=== PATIENT | male | born 1955 | race Two or more races ===

== ENCOUNTER 2018-11-24 16:51 | Emergency (ER) | payer SELFPAY ==
[~2018-11-24] VITALS: Ht 154.9 cm; Wt 79.4 kg
[2018-11-24 18:45] VITALS: BP 142/92
[2018-11-24] MEDS ORDERED: cefTRIAXone SOD 1,000 MG VL IM ONE (19:00)
[2018-11-24] MEDS ORDERED: HYDROcodone-ACET 10/325MG TAB PO ONE (19:00)
[2018-11-24] MEDS ORDERED: TETANUS-DIPTH-ACEL PERTUSSIS 0.5ML SYRG IM ONE (19:00)
[2018-11-24] MEDS ORDERED: LIDOCAINE W/ EPINEPHRINE 2% INJ 20ML VIAL IJ ONE (19:00)
== END 2018-11-24 19:50 | disposition home or self-care (01) ==
LOC: ER 16:54
DX: S81.812A Laceration without foreign body, left lower leg, initial encounter (principal); W22.8XXA Striking against or struck by other objects, initial encounter; Y93.89 Activity, other specified; Y99.8 Other external cause status; Y92.89 Other specified places as the place of occurrence of the external cause
CPT/HCPCS: 12004; 90471; 90715; 99283; J0696

== ENCOUNTER 2025-07-31 12:27 | Inpatient (IN) | payer MEDICARE, MEDICAID ==
[~2025-07-31] VITALS: Ht 167.6 cm; Wt 77.4 kg
[2025-07-31] VITALS (10 sets, daily range): BP systolic 128–149; BP diastolic 78–92; PULSE 53–71; RESP 12–21; TEMP 98.3; O2SAT 97–100
--- NOTE | 2025-07-31 13:03 | ED.PDOC ---
History of Present Illness HPI Comments 70M presents to the ER w/ the c/c of CP. Pt reports on having subsided chest tightness which radiates to the left side of the chest and the left throat for the past 90 minutes. Pt notes on having bilateral forearm stiffness. Family Hx of Cancer. Denies any other symptoms at this time. Denies chills, fever, N/V/D, SOB. Denies any other associated symptom's, modifiers, or recent injuries or sick contact at this time. Chief Complaint: Chest Pain Time Seen by MD: 13:00 Primary Care Provider: DENIES Reviewed Notes: Nurses Notes, Medications, Allergies Allergies: Coded Allergies: NO KNOWN ALLERGIES (Unverified , 11/24/18) Information Source: Patient Mode of Arrival: Ambulatory Severity: Moderate Timing: Minutes Duration: Since onset, Minutes Prehospital treatment: None Past Medical History PAST MEDICAL HISTORY: Denies Surgical History: Denies all surgeries Family History Family History: Reviewed,noncontributory to illness, Unknown Social History Smoker: Non-Smoker Alcohol: Denies ETOH Use Drugs: Denies Drug Use Lives In: Home Constitutional: denies: chills, diaphoresis, fatigue, fever, malaise, sweats, weakness, others EENTM: denies: blurred vision, double vision, ear bleeding, ear discharge, ear drainage, ear pain, ear ringing, eye pain, eye redness, hearing loss, mouth pain, mouth swelling, nasal discharge, nose bleeding, nose congestion, nose pain, photophobia, tearing, throat pain, throat swelling, voice changes, others Respiratory: denies: cough, hemoptysis, orthopnea, SOB at rest, shortness of breath, SOB with excertion, stridor, wheezing, others Cardiovascular: reports: chest pain; denies: dizzy spells, diaphoresis, Dyspnea on exertion, edema, irregular heart beat, left arm pain, lightheadedness, palpitations, PND, syncope, others Gastrointestinal: denies: abdomen distended, abdominal pain, blood streaked bowels, constipated, diarrhea, dysphagia, difficulty swallowing, hematemesis, melena, nausea, poor appetite, poor fluid intake, rectal bleeding, rectal pain, vomiting, others Genitourinary: denies: burning, dysuria, flank pain, frequency, hematuria, incontinence, penile discharge, penile sore, pain, testicle pain, testicle swelling, urgency, others Neurological: denies: dizziness, fainting, headache, left sided numbness, left sided weakness, numbness, paresthesia, pre-existing deficit, right sided numbness, right sided weakness, seizure, speech problems, tingling, tremors, weakness, others Musculoskeletal: denies: back pain, gout, joint pain, joint swelling, muscle pain, muscle stiffness, neck pain, others Integumetry: denies: bruises, change in color, change in hair/nails, dryness, laceration, lesions, lumps, rash, wounds, others Allergic/Immunocompromised: denies: Difficulty Healing, Frequent Infections, Hives, Itching, others Hematologic/Lymphatic: denies: anemia, blood clots, easy bleeding, easy bruising, swollen glands, others Endocrine: denies: excessive hunger, excessive sweating, excessive thirst, excessive urination, flushing, intolerance to cold, intolerance to heat, unexpl ained weight gain, unexplained weight loss, others Psychiatric: denies: anxiety, bipolar disorder, depression, hopeless, panic disorder, schizophrenia, sleepless, suicidal, others All Other Systems: Reviewed and Negative Physical Exam General Appearance: Moderate Distress HEENT: Normal ENT Inspection, Pharynx Normal, TMs Normal Neck: Full Range of Motion, Non-Tender, Normal, Normal Inspection Respiratory: Chest Non-Tender, Lungs Clear, No Accessory Muscle Use, No Respiratory Distress, Normal Breath Sounds Cardiovascular: No Edema, No JVD, No Murmur, No Gallop, Normal Peripheral Pulses, Regular Rate/Rhythm Breast Exam: Deferred Gastrointestinal: No Organomegaly, Non Tender, No Pulsatile Mass, Normal Bowel Sounds, Soft Genitalia: Deferred Pelvic: Deferred Rectal: Deferred Extremities: No calf tenderness, Normal capillary refill, Normal inspection, Normal range of motion, Non-tender, No pedal edema Musculoskeletal : Apperance: Normal Neurologic: Alert, boat cleaner II-XII nml as Tested, No Motor Deficits, Normal Affect, Normal Mood, No Sensory Deficits Cerebellar Function: Normal Reflexes: Normal Skin: Dry, Normal Color, Warm Lymphatic: No Adenopathy Was a procedure done? Was a procedure done?: No EKG EKG : Pulse Rate (adult): 55 [place]: Normal Cardiac Rhythm: NSR Block: None Hypertrophy: None ST: Normal Comments left axis deviation, borderline ST depression Differential Dx Considerations may include: ACS, CT, non STEMI, generalized weakness, electrolyte imbalance X-Ray, Labs, Meds, VS Vital Signs Date Time Temp Pulse Resp B/P (MAP) Pulse Ox O2 Delivery O2 Flow Rate FiO2 07/31/25 15:05 120/91 07/31/25 15:00 97.0 92 13 120/91 (101) 97 97.0 07/31/25 13:35 59 07/31/25 13:11 97.0 57 17 149/103 (118) 100 97.0 07/31/25 13:08 55 07/31/25 13:05 55 17 100 Room Air* 0 21 07/31/25 12:29 55 07/31/25 12:27 97.5 57 24 163/107 100 97.5 Lab Test 07/31/25 13:53 07/31/25 13:08 Range/Units Troponin I High Sensitivity 681 *H 543 *H </=54 ng/L White Blood Count 11.0 H 4.4-10.8 10^3/uL Red Blood Count 5.68 4.5-5.90 10^6/uL Hemoglobin 16.8 13.5-17.5 g/dL Hematocrit 49.8 41.0-53.0 % Mean Corpuscular Volume 87.7 80.0-100.0 fL Mean Corpuscular Hemoglobin 29.6 28.0-32.0 pg Mean Corpuscular Hemoglobin Concent 33.7 32.0-36.0 g/dL Red Cell Distribution Width 14.2 11.8-14.3 % Platelet Count 294 140-450 10^3/uL Mean Platelet Volume 8.0 6.9-10.8 fL Neutrophils (%) (Auto) 73.5 37.0-80.0 % Lymphocytes (%) (Auto) 17.7 10.0-50.0 % Monocytes (%) (Auto) 7.0 0.0-12.0 % Eosinophils (%) (Auto) 0.6 0.0-7.0 % Basophils (%) (Auto) 1.2 0.0-2.0 % Neutrophils # (Auto) 8.1 1.6-8.6 10 ^3/uL Lymphocytes # (Auto) 2.0 0.4-5.4 10 ^3/uL Monocytes # (Auto) 0.8 0-1.3 10 ^3/uL Eosinophils # (Auto) 0.1 0-0.8 10 ^3/uL Basophils # (Auto) 0.1 0-0.2 10 ^3/uL Nucleated Red Blood Cells 0.2 % Prothrombin Time 10.4 9.3-11.8 sec Prothrombin Time INR 0.98 0.9-1.15 Activated Partial Thromboplast Time 24.6 24.5-34.5 SEC Sodium Level 144 136-145 mmol/L Potassium Level 4.0 3.5-5.1 mmol/L Chloride Level 109 H 98-107 mmol/L Carbon Dioxide Level 19 L 20-31 mmol/L Anion Gap 16 H 5-15 Blood Urea Nitrogen 18 9-23 mg/dL Creatinine 1.21 0.700-1.30 mg/dL Glomerular Filtration Rate Calc 64 >90 mL/min BUN/Creatinine Ratio 14.9 10.0-20.0 Serum Glucose 135 H 74-106 mg/dL Calcium Level 9.8 8.7-10.4 mg/dL Magnesium Level 2.1 1.6-2.6 mg/dL Total Bilirubin 0.9 0.2-1.0 mg/dL Aspartate Amino Transferase (AST) 48 H 13-40 U/L Alanine Aminotransferase (ALT) 50 H 7-40 U/L Alkaline Phosphatase 94 46-116 U/L Total Protein 8.0 5.7-8.2 g/dL Albumin 4.8 3.2-4.8 g/dL Triglycerides Level 64 < 150 mg/dL Cholesterol Level 155 < 200 mg/dL LDL Cholesterol 70 < 100 mg/dL HDL Cholesterol 70 H 40-59 mg/dL Current Medications Medications (Trade) Dose Ordered Sig/Liz Route Start Time Stop Time Status Last Admin Aspirin 324 mg ONCE ONCE PO 07/31/25 13:15 07/31/25 13:16 DC 07/31/25 13:54 Heparin Sodium (Porcine) 2,500 units ONCE ONCE IV 07/31/25 13:15 07/31/25 13:16 DC 07/31/25 13:54 Heparin Sodium/ Dextrose 250 ml @ 9 mls/hr Q24H IV 07/31/25 14:15 07/31/25 14:42 Nitroglycerin 250 ml @ 1.5 mls/hr Q24H IV 07/31/25 14:45 07/31/25 15:05 We initially evaluated the patient and after seeing the EKG we did call a STEMI. We sent the EKG to the research editor and at that time the research editor stated that the patient would most likely be taken to laboratory engineer. When we explained to the patient what we are going to be doing, the patient then stated that he did not want to be taken to the laboratory engineer. The STEMI was then canceled. The patient has received aspirin 324 mg p.o.. Upon talking with the patient he then stated that he would like to leave against medical advice. We then initially were able to talk the patient into staying. The patient's pain was somewhat persistent but he stated that he did not want any pain medication. We were able to start nitroglycerin on this patient as well as a heparin bolus and heparin drip. A repeat EKG then showed worsening ST changes consistent with possible STEMI We then called the research editor again and the patient has a agreed to go to the laboratory engineer for angiogram. The patient's CBC shows a slightly elevated white blood cell count of 11 The rest of the CBC is within normal limits. The chemistry panel shows a CO2 level of 19 The anion gap is elevated at 16 The 1st troponin level came back at 543 The 2nd one came back at 681. We feel that this patient may be having a STEMI but the patient will be taken to laboratory engineer at this time. Medical decision making was made to admit the patient and has a Cardiology consult as well as take the patient for an angiogram and possible stent secondary to the persistent chest pain and elevated troponin levels. Critical Care involved consultation with the research editor as well as bedside evaluation and evaluation of labs and images. Images Reviewed?: Images reviewed and evaluated by me Time of 1ST Reevaluation: 13:30 Reevaluation 1ST: Unchanged Patient Education/Counseling: Diagnosis, Treatment, Prognosis Family Education/Counseling: No Family Present SEPSIS Sepsis Screen Date sepsis recognized/suspect: Jul 31, 2025 Time Sepsis recognized/suspect: 1241 Recent Procedure: No On Antibiotic Therapy: No Respiratory Rate >20: Yes Heart Rate >90: No Temp<36 C (96.8 F) or >38.3 C: No SBP <90 or MAP <65 mmHG: No New Acute Mental Status Change: No Is the patient on CPAP, BIPAP,: No Physician Orders Electrocardigram (07/31/25 12:46) Electrocardigram (07/31/25 13:46) Electrocardigram (07/31/25 15:46) Chest Portable (07/31/25 13:01) Laboratory Engineer (07/31/25 13:01) Blood Pressure (07/31/25 13:01) Pulse Oximetry (07/31/25 13:01) Heplock Iv (07/31/25 13:01) Heplock Iv (07/31/25 13:01) Oxygen Per Hour (07/31/25 13:01) Echo 2d Mode Cardiac Dop (07/31/25 13:01) Troponin-I Hs (07/31/25 16:01) Cl Left Heart Cath (07/31/25 13:12) Clopidogrel Bisulfate (Plavix) (08/02/25 10:00) Complete Blood Count (08/01/25 04:00) PTPTT (07/31/25 20:00) Heparin Per Pharmacy Protocol (07/31/25 13:56) Heparin Drip/D5w 100units/Ml (07/31/25 14:15) Nitroglycerin 50mg/250ml (Tridil) (07/31/25 14:45) Atorvastatin (Lipitor) (07/31/25 22:00) Oxygen By Nasal Cannula (07/31/25 14:33) Chest Portable (07/31/25 14:34) Laboratory Engineer (07/31/25 14:34) Blood Pressure (07/31/25 14:34) Pulse Oximetry (07/31/25 14:34) Sodium Chloride Lock (Saline Lock Ns) (07/31/25 22:00) Oxygen Per Hour (07/31/25 14:34) Cardiac Rehabilitation - Outpa (07/31/25 ) Npo Except For Medications (08/01/25 00:01) Obtain Consent For: (07/31/25 14:34) D/C Tlc (07/31/25 14:34) Shave Both Groins (07/31/25 14:34) Provide Education Materials (07/31/25 14:34) Cl Left Heart Cath (07/31/25 14:34) Comprehensive Metabolic Panel (08/02/25 04:00) Obtain Consent For Anesthesia (07/31/25 14:34) Thyroid Stimulating Hormone (07/31/25 16:37) Hemoglobin A1c (07/31/25 16:37) B-Type Natriuretic Peptide (07/31/25 16:38) Vital Signs Date Time Temp Pulse Resp B/P (MAP) Pulse Ox O2 Delivery O2 Flow Rate FiO2 07/31/25 15:05 120/91 07/31/25 15:00 97.0 92 13 120/91 (101) 97 97.0 07/31/25 13:35 59 07/31/25 13:11 97.0 57 17 149/103 (118) 100 97.0 07/31/25 13:08 55 07/31/25 13:05 55 17 100 Room Air* 0 21 07/31/25 12:29 55 07/31/25 12:27 97.5 57 24 163/107 100 97.5 Laboratory Tests Test 07/31/25 13:08 White Blood Count 11.0 10^3/uL (4.4-10.8) H Medications Medications Dose Ordered Sig/Liz Route Start Time Stop Time Status Last Admin Dose Admin Aspirin 324 mg ONCE ONCE PO 07/31/25 13:15 07/31/25 13:16 DC 07/31/25 13:54 Heparin Sodium (Porcine) 2,500 units ONCE ONCE IV 07/31/25 13:15 07/31/25 13:16 DC 07/31/25 13:54 Heparin Sodium/ Dextrose 250 ml @ 9 mls/hr Q24H IV 07/31/25 14:15 07/31/25 14:42 Nitroglycerin 250 ml @ 1.5 mls/hr Q24H IV 07/31/25 14:45 07/31/25 15:05 Departure 1 Departure Time of Disposition: 16:35 Impression: Primary Impression: Non-STEMI (non-ST elevated myocardial infarction) Disposition: 09 ADMITTED INPATIENT Admit to: ICU Condition: Fair Critical Care Note Critical Care Time?: Yes (45 min-critical care time only) Stability Stability form required: Yes Unstable for transfer: ICU, CCU, PCU, DOTTY (Intensive VS monitoring), ED Physician Assesment (Clinical assesment) Heart Score Heart Score: Heart Score Response (Comments) Value History Highly Suspicious [address]-Deviation 2 Age 45-64 1 Risk Factors 1 or 2 risk factors 1 Troponin >3 x's Normal limit 2 Total 8 I personally scribed for ISI WALSH MD ([email or web address]) on 07/31/25 at 13:03. Electronically submitted by Sherif Hernández ([email or web address]). I personally scribed for ISI WALSH MD ([email or web address]) on 07/31/25 at 13:08. Electronically submitted by Sherif Hernández ([email or web address]). ISI WALSH MD Jul 31, 2025 13:03
--- NOTE | 2025-07-31 13:33 | DVH ---
INDICATION: cp TECHNIQUE: Frontal view of the chest. COMPARISON: None FINDINGS: . The heart and mediastinal contours are grossly unremarkable. There is no evidence of pleural disea se. The lungs are clear. The bony structures of the chest are intact without fracture. IMPRESSION: 1. No evidence of acute disease.
[2025-07-31] MEDS ORDERED: HEPARIN DRIP/D5W 100UNITS/ML 250 ML IV SCH (13:45)
[2025-07-31 13:46] LABS: Hematocrit 49.8 % (41.0-53.0); Hemoglobin 16.8 g/dL (13.5-17.5); Mean Corpuscular Hemoglobin 29.6 pg (28.0-32.0); Mean Corpuscular Volume 87.7 fL (80.0-100.0); Nucleated Red Blood Cells % 0.2 %
[2025-07-31 13:54] LABS: INR 0.98 (0.9-1.15); Partial Thromboplastin Time 24.6 SEC (24.5-34.5); Prothrombin Time 10.4 sec (9.3-11.8)
[2025-07-31] MEDS: HEPARIN 1,000 UNITS/ml 1ML VIAL IV ONE (13:54)
[2025-07-31] MEDS: VERAPAMIL 2.5MG/ML INJ 2ML VIAL IV ONE ×2 (13:58→16:24)
[2025-07-31] MEDS: LIDOCAINE 2%HCL (LOCAL ANESTH.) INJ 20ML MDV ONE ×2 (13:58→15:46)
[2025-07-31] MEDS: MIDAZOLAM HCL 2MG/2ML 2ml VIAL (1mg/ml) ONE ×2 (13:58→15:46)
[2025-07-31] MEDS: fentaNYL CITRATE 100 MCG/2 ML VL ONE ×2 (13:58→15:46)
[2025-07-31] MEDS: HEPARIN SODIUM (PORCINE) 5000 UNITS/ML 1ML VIAL ONE ×2 (13:58→15:46)
[2025-07-31 14:03] LABS: Alkaline Phosphatase 94 U/L (46-116); Bilirubin, Total 0.9 mg/dL (0.2-1.0); Calcium 9.8 mg/dL (8.7-10.4); Magnesium 2.1 mg/dL (1.6-2.6); Potassium 4.0 mmol/L (3.5-5.1); Total Protein 8.0 g/dL (5.7-8.2)
[2025-07-31 14:07] LABS: Alanine Aminotransferase 50 U/L (7-40); Albumin 4.8 g/dL (3.2-4.8); Carbon Dioxide 19 mmol/L (20-31); Chloride 109 mmol/L (98-107); Glucose 135 mg/dL (74-106)
[2025-07-31 14:08] LABS: Anion Gap 16 (5-15); BUN/Creatinine Ratio 14.9 (10.0-20.0); Blood Urea Nitrogen 18 mg/dL (9-23); Sodium 144 mmol/L (136-145)
[2025-07-31] MEDS: ONDANSETRON HCL 4 MG/2 ML VIAL IV ONE (14:42)
[2025-07-31] MEDS: HEPARIN DRIP/D5W 100UNITS/ML 250 ML IV SCH (14:42)
[2025-07-31] MEDS: HYDROmorphone HCL 2 MG/ML VL/or syr IV ONE (14:42)
[2025-07-31] MEDS: NITROGLYCERIN 50MG/250ML 250 ML IV SCH (15:05)
--- NOTE | 2025-07-31 15:07 | DVHCONRES ---
Date Seen: Jul 31, 2025 Resident Creating Document: DEANDRE HAWTHORNE RESIDENT Referring Physician Dr Centeno Reason for Consultation ACS History of Present Illness This is a 70-year-old male with no known past medical history who presents with acute onset of chest pain. Approximately two hours prior to arrival (ED arrival time 12:27 PM), the patient was cutting wood with a machine when he developed sudden epigastric pain that radiated to the neck and chest. The pain was described as severe, pressure-like, and associated with bilateral arm numbness. He denies shortness of breath, palpitations, diaphoresis, nausea, vomiting, cough, or dizziness. He reports being in his usual state of health prior to this episode. In the ED, initial EKG at 12:29 PM showed sinus rhythm (rate 55 bpm), left axis deviation, and borderline ST depression in diffuse leads without clear ST elevationinterpreted as borderline ischemic changes. The case was initially activated as a possible STEMI; however, after review by Dr. Braxton, findings were not consistent with STEMI. The patient initially refused cardiac catheterization but, around 2:30 PM, reported worsening chest pain. Telemetry revealed dynamic ischemic changes and the patient subsequently consented to proceed with left heart catheterization. Social History: Tobacco: Denies Alcohol: 1 shot of cognac every weekend Illicit drugs: Denies Lives independently Patient was placed on heparin drip, nitro drip, loading with aspirin and clopidogrel Labs (07/31/25): Troponin I high-sensitivity: 543 ng/L (elevated) consistent with acute myocardial injury. Past Medical History Denies any chronic medical conditions Past Surgical History Denies prior surgeries Allergies: Coded Allergies: NO KNOWN ALLERGIES (Unverified , 11/24/18) Current Medications Current Medications Medications (Trade) Dose Ordered Sig/Liz Route PRN Reason Start Time Stop Time Status Last Admin Clopidogrel Bisulfate (Plavix) 75 mg DAILY PO 08/02/25 10:00 Heparin Sodium/ Dextrose 250 ml @ 8 mls/hr Q24H IV 07/31/25 13:45 07/31/25 14:07 DC Heparin Sodium/ Dextrose 250 ml @ 9 mls/hr Q24H IV 07/31/25 14:15 07/31/25 14:42 Nitroglycerin 250 ml @ 1.5 mls/hr Q24H IV 07/31/25 14:45 UNV Atorvastatin Calcium (Lipitor) 80 mg HS PO 07/31/25 22:00 UNV Sodium Chloride (Saline Lock Ns) 10 ml Q8HR IV 07/31/25 22:00 UNV Review of Systems Constitutional: No fever, chills, or weight loss Cardiovascular: Chest pain radiating to neck and arms, denies palpitations or leg swelling Respiratory: No dyspnea, orthopnea, or cough Gastrointestinal: Initial epigastric pain, no nausea or vomiting Neurological: Bilateral arm numbness, no weakness All other systems: Negative Vital Signs Vital Signs Date Time Temp Pulse Resp B/P (MAP) Pulse Ox O2 Delivery O2 Flow Rate FiO2 07/31/25 13:35 59 07/31/25 13:05 17 100 Room Air* 0 21 07/31/25 12:27 97.5 163/107 97.5 Physical Exam General: Alert, oriented 3, in mild distress due to chest pain Vitals: Stable (exact values to be filled) HEENT: No JVD, no carotid bruits Cardiac: Regular rate and rhythm, no murmurs, rubs, or gallops Lungs: Clear to auscultation bilaterally, no rales or wheezing Abdomen: Soft, non-distended, mild epigastric tenderness, no rebound or guarding Extremities: No edema, pulses palpable bilaterally Neuro: Grossly intact, no focal deficits Skin: Warm, dry, no diaphoresis noted Labs/Diagnostic Data Labs Test 07/31/25 13:53 07/31/25 13:08 Range/Units Troponin I High Sensitivity 681 *H </=54 ng/L White Blood Count 11.0 H 4.4-10.8 10^3/uL Red Blood Count 5.68 4.5-5.90 10^6/uL Hemoglobin 16.8 13.5-17.5 g/dL Hematocrit 49.8 41.0-53.0 % Mean Corpuscular Volume 87.7 80.0-100.0 fL Mean Corpuscular Hemoglobin 29.6 28.0-32.0 pg Mean Corpuscular Hemoglobin Concent 33.7 32.0-36.0 g/dL Red Cell Distribution Width 14.2 11.8-14.3 % Platelet Count 294 140-450 10^3/uL Mean Platelet Volume 8.0 6.9-10.8 fL Neutrophils (%) (Auto) 73.5 37.0-80.0 % Lymphocytes (%) (Auto) 17.7 10.0-50.0 % Monocytes (%) (Auto) 7.0 0.0-12.0 % Eosinophils (%) (Auto) 0.6 0.0-7.0 % Basophils (%) (Auto) 1.2 0.0-2.0 % Neutrophils # (Auto) 8.1 1.6-8.6 10 ^3/uL Lymphocytes # (Auto) 2.0 0.4-5.4 10 ^3/uL Monocytes # (Auto) 0.8 0-1.3 10 ^3/uL Eosinophils # (Auto) 0.1 0-0.8 10 ^3/uL Basophils # (Auto) 0.1 0-0.2 10 ^3/uL Nucleated Red Blood Cells 0.2 % Prothrombin Time 10.4 9.3-11.8 sec Prothrombin Time INR 0.98 0.9-1.15 Activated Partial Thromboplast Time 24.6 24.5-34.5 SEC Sodium Level 144 136-145 mmol/L Potassium Level 4.0 3.5-5.1 mmol/L Chloride Level 109 H 98-107 mmol/L Carbon Dioxide Level 19 L 20-31 mmol/L Anion Gap 16 H 5-15 Blood Urea Nitrogen 18 9-23 mg/dL Creatinine 1.21 0.700-1.30 mg/dL Glomerular Filtration Rate Calc 64 >90 mL/min BUN/Creatinine Ratio 14.9 10.0-20.0 Serum Glucose 135 H 74-106 mg/dL Calcium Level 9.8 8.7-10.4 mg/dL Magnesium Level 2.1 1.6-2.6 mg/dL Total Bilirubin 0.9 0.2-1.0 mg/dL Aspartate Amino Transferase (AST) 48 H 13-40 U/L Alanine Aminotransferase (ALT) 50 H 7-40 U/L Alkaline Phosphatase 94 46-116 U/L Total Protein 8.0 5.7-8.2 g/dL Albumin 4.8 3.2-4.8 g/dL Assessment -Chest pain secondary to ACS- NSTEMI type 1 -Hypertension -Acute kidney injury? Plan/Recommendation Plan: Cardiology: Proceed with left heart catheterization (patient consented). ACS protocol: Aspirin 325 mg PO given. Heparin drip per ACS protocol. High-intensity statin: Atorvastatin 80 mg PO daily. Nitroglycerin drip, monitor for hypotension. Clopidogrel 300 mg PO per ACS protocol Telemetry: Continuous cardiac monitoring for arrhythmia or ischemic changes. Labs: Serial troponin q3h 3, repeat BMP post-cath to monitor renal function. Imaging: Chest X-ray to rule out alternate causes; Echocardiogram to assess LV function and wall motion abnormalities. NPO pending procedure. Case discussed with Dr Butler Time spent on critical care 71 min Plan discussed with: Patient DEANDRE HAWTHORNE RESIDENT Jul 31, 2025 15:07
--- NOTE | 2025-07-31 15:22 | DVH ---
INDICATION: STEMI TECHNIQUE: Frontal view of the chest. COMPARISON: XY CHEST PORTABLE on DOS: 07/31/25 FINDINGS: . The heart and mediastinal contours are grossly unremarkable. There is no evidence of pleural disea se. The lungs are clear. The bony structures of the chest are intact without fracture. IMPRESSION: 1. No evidence of acute disease.
[2025-07-31] MEDS: HEPARIN IN NS 1000Units/500mL 0 ML ONE (15:46)
[2025-07-31] MEDS: IODIXANOL 320MG/ML 100ML BTL IV ONE (15:48)
[2025-07-31 16:12] LABS: Triglycerides 64 mg/dL (< 150)
[2025-07-31 16:14] LABS: Cholesterol 155 mg/dL (< 200)
[2025-07-31 16:15] LABS: HDL Cholesterol 70 mg/dL (40-59)
[2025-07-31] MEDS: ANGIOMAX 250 MG VIAL IV ONE ×2 (16:26→17:41)
[2025-07-31] MEDS: SODIUM CHL 0.9% 50 ML ONE ×2 (16:26→17:41)
--- NOTE | 2025-07-31 16:45 | DVHPN2 ---
Date of Service: Jul 31, 2025 Billing Provider: GUILLAUME TENA Sr., MD Cardiology Common Codes: 59132-BYOYDFSL CARE 30-74 MIN DEANDRE HAWTHORNE RESIDENT Jul 31, 2025 16:44
[2025-07-31] MEDS: ATROPINE SULF 1 MG/10ml SYR ONE (17:52)
[2025-07-31] MEDS: EPTIFIBATIDE INJ (2MG/ML) 10ML VIAL IV ONE (18:07)
[2025-07-31] MEDS: TICAGRELOR 90 MG TAB ONE (18:13)
[2025-07-31] MEDS: CLOPIDOGREL BISULFATE 75 MG TAB PO ONE (18:25)
[2025-07-31] MEDS: NITROGLYCERIN 0.4 MG SL TAB SL ONE (18:25)
[2025-07-31] MEDS ORDERED: MORPHINE SULFATE INJ 2 MG/ml SYRG IV PRN (19:00)
[2025-07-31] MEDS ORDERED: NITROGLYCERIN 0.4 MG SL TAB SL PRN (19:00)
[2025-07-31] MEDS: SODIUM CHLORIDE 0.9% 1,000 ML IV ONE (20:13)
--- NOTE | 2025-07-31 20:28 | DVHOP ---
DATE OF SURGERY: 07/31/2025 TECHNIQUES PERFORMED: * Code STEMI. * Ultrasound of the right radial artery. * Management of conscious sedation. * Left coronary angiography. * Mechanical thrombectomy of the left circumflex artery with the help of [place] catheter. * Balloon angioplasty of the proximal mid region of the left circumflex artery with 3.0 x 12 mm length noncompliant balloon. * Stenting and angioplasty of the proximal region of the left circumflex artery with 3.0 x 18 mm length Bainbridge Nuckolls stent of [employer]. * Intravascular ultrasound of the left circumflex and left main artery. * Balloon angioplasty of the left circumflex stent with 3.0 x 15 mm length noncompliant balloon, made stent size to 3.67 mm in size. * Intracoronary administration of Integrilin. * Intracoronary administration of the multiple doses of the nitroglycerin and nicardipine. COMPLICATIONS: None. ASSISTANTS: Assisted by our staff here is Hema. DESCRIPTION OF PROCEDURE: In a standard manner, we have a 6-[place] arterial line under ultrasound. We put an XB 3.5, we were unable to engage. We put ____ to engage it. AngioMax was started. Spectra wire was passed with the help of the balloon. Balloon angioplasty was done. Artery closed down subsequently. We opened up the artery from proximal to mid again and we have given intracoronary nicardipine and nitroglycerine. Subsequently now the artery again opened up and then we put a balloon 3.0 x 20, balloon angioplasty was done. Subsequently, now we put a stent 3.0 x 18 mm length balloon, stent was deployed at a total of 19 atmospheres. Stent size was increased to 3.35 mm in size. Subsequently now, ____. We put a 3.5 x 15 mm noncompliant balloon and I made the stent up to 3.67 mm in size, proximal, mid and distally. Intracoronary Integrilin given 10 mL bolus. Procedure went well. There was no complication. CONCLUSIONS: * Prior to performing the procedure #1, the left circumflex artery was narrowed 99%, FELIPE grade 2 flow, type C lesion, bifurcation lesion. * Post-procedure, FELIPE grade 3 flow, residual stenosis is 0%, no spasm, no dissection, no thrombosis. Procedure successful. PLAN OF ACTION: Advised for aspirin, Brilinta, beta-minerva medicine, cholesterol reducing medicine and outpatient followup. May consider in future the angioplasty with stenting of the left anterior descending artery. Lisa Butler MD MP/LINA/ALEXANDRE TID: [id number] RECEIPT: [id number]
[2025-07-31] MEDS: ATORVASTATIN 20 MG TAB PO SCH (21:25)
[2025-07-31] MEDS: METOPROLOL TARTRATE 25 MG TAB PO SCH (21:28)
--- NOTE | 2025-07-31 21:28 | DVHOP ---
DATE OF SURGERY: 07/31/2025 TECHNIQUE PERFORMED: * This is an emergency case. * Ultrasound of the right radial artery. * Management of conscious sedation. * Ultrasound-guided insertion of a 6-Omani arterial line in the right radial artery. * Left heart catheterization. * Left ventriculogram. * Minto selective left and right coronary artery angiography. ASSISTANTS: Assisted by Silvia Degroot Angie. INDICATIONS: The patient has an acute myocardial infarction. EKG has a very tall R wave noted in V2 and ST-T changes noted in the inferolateral lead. Code STEMI was called. The patient repeated procedure. Subsequently, he agreed here. He was brought to computer lab aide. The patient's right radial area thoroughly cleaned with soap and Betadine and lidocaine was given. A 6-Omani arterial line was placed and we put a TIG catheter 5-Omani 4.0 and the left coronary angio done. With the help of JL4 catheter, the right ____ performed. At the end of the procedure, we also put a pigtail catheter, complete left heart cath had been done. The left ventriculogram was done in the right anterior oblique view with a total of 20 mL of dye. Post-LV gram, left ventricular angiography had been performed with the help of pull-through technique. Aortic pressure was also performed. J-wire was passed. ____. Procedure completed. IMPRESSION: * Normal left main. * Left anterior descending artery, proximally narrowed 70% FELIPE grade 3 flow. * Circumflex artery at the junction of the obtuse marginal and circumflex artery. It is narrowed in the range of 99%. FELIPE grade 2 flow. It is a large artery. * The patient's right coronary artery is a large dominant artery. Diffuse plaque noted. Mild narrowing mid, proximal and distally, but not critical. * Ejection fraction 40%, inferior wall hypokinesis. PLAN OF ACTION: Advised to undergo the intervention of the circumflex artery. Lisa Butler MD MP/ELZBIETA/ALEXANDRE TID: [id number] RECEIPT: [id number]
[2025-07-31] MEDS: SODIUM CHLOR 0.9% PF (SALINE LOCK) 10ML VIAL/SYR IV SCH (21:29)
[2025-07-31 21:48] LABS: INR 1.18 (0.9-1.15); Partial Thromboplastin Time 46.4 SEC (24.5-34.5); Prothrombin Time 12.3 sec (9.3-11.8)
--- NOTE | 2025-07-31 23:18 | DVHINCON2 ---
Date of service: Jul 31, [address] Centeno Reason for Consultation ACS History of Present Illness This is a 70-year-old male with no significant medical history who presents with acute onset of chest pain. Approximately two hours prior to arrival (ED arrival time 12:27 PM), the patient was cutting wood with a machine when he developed sudden epigastric pain that radiated to the neck and chest. The pain was described as severe, pressure-like, and associated with bilateral arm numbness. He denies shortness of breath, palpitations, diaphoresis, nausea, vomiting, cough, or dizziness. He reports being in his usual state of health prior to this episode. In the ED, initial EKG at 12:29 PM showed sinus rhythm (rate 55 bpm), left axis deviation, and borderline ST depression in diffuse leads without clear ST elevationinterpreted as borderline ischemic changes. The case was initially activated as a possible STEMI; however, after review by Dr. Braxton, findings were not consistent with STEMI. WBC 11, TROP 681. Chest x-ray shwed NAD. The patient initially refused cardiac catheterization but, around 2:30 PM, reported worsening chest pain. Telemetry revealed dynamic ischemic changes and the patient subsequently consented to proceed with left heart catheterization. Patient was admitted to the hospital. I am asked to consult on this patient. Allergies: Coded Allergies: NO KNOWN ALLERGIES (Unverified , 11/24/18) Current Medications Current Medications Medications (Trade) Dose Ordered Sig/Liz Route PRN Reason Start Time Stop Time Status Last Admin Clopidogrel Bisulfate (Plavix) 75 mg DAILY PO 08/02/25 10:00 Heparin Sodium/ Dextrose 250 ml @ 8 mls/hr Q24H IV 07/31/25 13:45 07/31/25 14:07 DC Heparin Sodium/ Dextrose 250 ml @ 9 mls/hr Q24H IV 07/31/25 14:15 07/31/25 18:50 DC 07/31/25 14:42 Nitroglycerin 250 ml @ 1.5 mls/hr Q24H IV 07/31/25 14:45 07/31/25 18:50 DC 07/31/25 15:05 Atorvastatin Calcium (Lipitor) 80 mg HS PO 07/31/25 22:00 07/31/25 21:25 Sodium Chloride (Saline Lock Ns) 10 ml Q8HR IV 07/31/25 22:00 07/31/25 21:29 Aspirin 81 mg DAILY PO 08/01/25 10:00 Ticagrelor (Brilinta) 90 mg BID PO 08/01/25 10:00 UNV Metoprolol Tartrate (Lopressor Tablet) 25 mg BID PO 07/31/25 22:00 07/31/25 21:28 Nitroglycerin (Ntrostat Sublingual) 0.4 mg Q5MINP PRN SL FOR CHEST PAIN 07/31/25 19:00 Morphine Sulfate 2 mg Q30M PRN IV FOR CHEST PAIN 07/31/25 19:00 Review of Systems Constitutional: No fever, chills, or weight loss Cardiovascular: Chest pain radiating to neck and arms, denies palpitations or leg swelling Respiratory: No dyspnea, orthopnea, or cough Gastrointestinal: Initial epigastric pain, no nausea or vomiting Neurological: Bilateral arm numbness, no weakness All other systems: Negative Vital Signs Vital Signs Date Time Temp Pulse Resp B/P (MAP) Pulse Ox O2 Delivery O2 Flow Rate FiO2 07/31/25 21:28 61 130/85 07/31/25 19:53 14 98 07/31/25 19:08 98.3 98.3 07/31/25 13:05 Room Air* 0 21 Physical Exam GENERAL: Alert and oriented x 3. No acute distress. EYES: PERRL, EOMI. Anicteric. HENT: Moist mucous membranes. LUNGS: Clear to auscultation bilaterally. CARDIOVASCULAR: Regular rate and rhythm. ABDOMEN: Soft, nontender and nondistended. EXTREMITIES: No edema. NEUROLOGIC: No focal neurological deficits. SKIN: Warm, dry. Labs/Diagnostic Data Labs Test 07/31/25 20:53 07/31/25 13:53 07/31/25 13:08 Range/Units Troponin I High Sensitivity 681 *H </=54 ng/L Thyroid Stimulating Hormone (TSH) 1.13 0.55-4.78 uIU/mL White Blood Count 11.0 H 4.4-10.8 10^3/uL Red Blood Count 5.68 4.5-5.90 10^6/uL Hemoglobin 16.8 13.5-17.5 g/dL Hematocrit 49.8 41.0-53.0 % Mean Corpuscular Volume 87.7 80.0-100.0 fL Mean Corpuscular Hemoglobin 29.6 28.0-32.0 pg Mean Corpuscular Hemoglobin Concent 33.7 32.0-36.0 g/dL Red Cell Distribution Width 14.2 11.8-14.3 % Platelet Count 294 140-450 10^3/uL Mean Platelet Volume 8.0 6.9-10.8 fL Neutrophils (%) (Auto) 73.5 37.0-80.0 % Lymphocytes (%) (Auto) 17.7 10.0-50.0 % Monocytes (%) (Auto) 7.0 0.0-12.0 % Eosinophils (%) (Auto) 0.6 0.0-7.0 % Basophils (%) (Auto) 1.2 0.0-2.0 % Neutrophils # (Auto) 8.1 1.6-8.6 10 ^3/uL Lymphocytes # (Auto) 2.0 0.4-5.4 10 ^3/uL Monocytes # (Auto) 0.8 0-1.3 10 ^3/uL Eosinophils # (Auto) 0.1 0-0.8 10 ^3/uL Basophils # (Auto) 0.1 0-0.2 10 ^3/uL Nucleated Red Blood Cells 0.2 % Sodium Level 144 136-145 mmol/L Potassium Level 4.0 3.5-5.1 mmol/L Chloride Level 109 H 98-107 mmol/L Carbon Dioxide Level 19 L 20-31 mmol/L Anion Gap 16 H 5-15 Blood Urea Nitrogen 18 9-23 mg/dL Creatinine 1.21 0.700-1.30 mg/dL Glomerular Filtration Rate Calc 64 >90 mL/min BUN/Creatinine Ratio 14.9 10.0-20.0 Serum Glucose 135 H 74-106 mg/dL Hemoglobin A1c 5.9 H <5.7 % A1C Calcium Level 9.8 8.7-10.4 mg/dL Magnesium Level 2.1 1.6-2.6 mg/dL Total Bilirubin 0.9 0.2-1.0 mg/dL Aspartate Amino Transferase (AST) 48 H 13-40 U/L Alanine Aminotransferase (ALT) 50 H 7-40 U/L Alkaline Phosphatase 94 46-116 U/L B-Type Natriuretic Peptide 47.21 0-100 pg/mL Total Protein 8.0 5.7-8.2 g/dL Albumin 4.8 3.2-4.8 g/dL Triglycerides Level 64 < 150 mg/dL Cholesterol Level 155 < 200 mg/dL LDL Cholesterol 70 < 100 mg/dL HDL Cholesterol 70 H 40-59 mg/dL Assessment Chest pain secondary to ACS- NSTEMI type 1. Hypertension. Acute kidney injury?. Plan/Recommendation I agree with your ongoing assessment and care of plan. Patient has been seen by Reena Mclaughlin Resident on my behalf, we have discussed the plan with the patient. Left heart cath, risks and benefits were discussed with the patient. ACS protocol. Aspirin 325 mg PO given. Heparin drip per ACS protocol. High-intensity statin: Atorvastatin 80 mg PO daily. Nitroglycerin drip, monitor for hypotension. Clopidogrel 300 mg PO per ACS protocol. Additional plan as per the hospital course. A total of 45 minutes was spent reviewing the patient record, examining the patient, making a diagnostic and therapeutic plan, discussing this plan with medical personnel, following up on diagnostic studies and following the patient for clinical stability excluding any and all procedures. At least 50% of this time was spent in direct, [id number] contact. Plan discussed with: Patient MAGI BROWN MD Jul 31, 2025 21:59
[2025-08-01] VITALS (8 sets, daily range): BP systolic 104–133; BP diastolic 62–87; PULSE 54–69; RESP 16–20; TEMP 97.6–99.6; O2SAT 96–99
--- NOTE | 2025-08-01 08:03 | ECG ---
[facility] Test Date: 2025-07-31 Test Time: 13:35:40 Pat Name: KELLEN ROSA Department: [facility] ED Patient ID: [id number] Room: [facility]4T B Gender: M Groundman/Lineman: radha : 1955 Requested By: ISI WALSH Order Number: [id number] Reading MD: Abdi Braxton Measurements Intervals [place] Rate: 59 P: 19 [place]: 209 QRS: -74 QRSD: 105 T: 37 QT: 445 QTc: 441 Interpretive Statements Sinus rhythm Consider right atrial enlargement Inferior infarct, old Repol abnrm, severe global ischemia (LM/MVD) Electronically Signed On 08-05-2025 14:20:03 PDT by Abdi Braxton Please click the below link to view image of tracing.
--- NOTE | 2025-08-01 08:04 | ECG ---
[facility] Test Date: 2025-07-31 Test Time: 12:29:52 Pat Name: KELLEN ROSA Department: [facility] ED Patient ID: [id number] Room: [facility]4T B Gender: M Bag Filler: radha : 1955 Requested By: ISI WALSH Order Number: [id number] Reading MD: Abdi Braxton Measurements Intervals [place] Rate: 55 P: -15 [place]: 207 QRS: -58 QRSD: 108 T: 31 QT: 414 QTc: 396 Interpretive Statements Sinus rhythm Left axis deviation Borderline ST depression, diffuse leads Electronically Signed On 08-05-2025 14:19:55 PDT by Abdi Braxton Please click the below link to view image of tracing.
[2025-08-01 08:10] LABS: Hematocrit 40.2 % (41.0-53.0); Hemoglobin 13.9 g/dL (13.5-17.5); Mean Corpuscular Hemoglobin 30.2 pg (28.0-32.0); Mean Corpuscular Volume 87.3 fL (80.0-100.0); Nucleated Red Blood Cells % 0.0 %
[2025-08-01 08:16] LABS: Albumin 3.8 g/dL (3.2-4.8); Alkaline Phosphatase 72 U/L (46-116); Anion Gap 10 (5-15); BUN/Creatinine Ratio 12.8 (10.0-20.0); Blood Urea Nitrogen 12 mg/dL (9-23); Carbon Dioxide 23 mmol/L (20-31); Glucose 97 mg/dL (74-106); Magnesium 2.0 mg/dL (1.6-2.6); Potassium 3.9 mmol/L (3.5-5.1); Sodium 142 mmol/L (136-145); Total Protein 6.3 g/dL (5.7-8.2)
[2025-08-01 08:43] LABS: Alanine Aminotransferase 68 U/L (7-40); Bilirubin, Total 1.3 mg/dL (0.2-1.0); Calcium 8.5 mg/dL (8.7-10.4); Chloride 109 mmol/L (98-107)
[2025-08-01] MEDS: TICAGRELOR 90 MG TAB PO SCH (10:00)
--- NOTE | 2025-08-01 10:02 | DVHPNRES ---
Progress Note Date Seen: Aug 01, 2025 Resident Creating Document: DEANDRE HAWTHORNE RESIDENT Has the PT tested + for MRSA If YES, has PT been informed?: No Medical Necessity Reason Pt with a Central, PICC or Fol: No Subjective Review of Systems This is a 70-year-old male with no known past medical history who presents with acute onset of chest pain. Approximately two hours prior to arrival (ED arrival time 12:27 PM), the patient was cutting wood with a machine when he developed sudden epigastric pain that radiated to the neck and chest. The pain was described as severe, pressure-like, and associated with bilateral arm numbness. He denies shortness of breath, palpitations, diaphoresis, nausea, vomiting, cough, or dizziness. He reports being in his usual state of health prior to this episode. In the ED, initial EKG at 12:29 PM showed sinus rhythm (rate 55 bpm), left axis deviation, and borderline ST depression in diffuse leads without clear ST elevationinterpreted as borderline ischemic changes. The case was initially activated as a possible STEMI; however, after review by Dr. Braxton, findings were not consistent with STEMI. The patient initially refused cardiac catheterization but, around 2:30 PM, reported worsening chest pain. Telemetry revealed dynamic ischemic changes and the patient subsequently consented to proceed with left heart catheterization. Social History: Tobacco: Denies Alcohol: 1 shot of cognac every weekend Illicit drugs: Denies Lives independently Patient was placed on heparin drip, nitro drip, loading with aspirin and clopidogrel Labs (07/31/25): Troponin I high-sensitivity: 543 ng/L (elevated) consistent with acute myocardial injury. 07/31/25: LHC 99% stenosis in left circumflex, 2 stent placed, 70% LAD stenosis, mild stenosis RCA, EF 40%, inferior wall hypokinesis. Patient will need a stent in LAD in further procedure. Objective vital signs Vital Sign Date Time Temp Pulse Resp B/P (MAP) Pulse Ox O2 Delivery O2 Flow Rate FiO2 08/01/25 08:34 97.6 62 16 104/62 (76) 96 97.6 07/31/25 21:10 Room Air* 0 21 Total Intake and Output 07/31/25 07/31/25 08/01/25 15:00 23:00 07:00 Intake Total 0 ml Balance 0 ml medications Current Medications Medications Dose Ordered Sig/Liz Route Start Time Stop Time Status Last Admin Dose Admin Sodium Chloride 10 ml Q8HR IV 07/31/25 22:00 08/01/25 06:48 10 ML Aspirin 81 mg DAILY PO 08/01/25 10:00 Ticagrelor 90 mg BID PO 08/01/25 10:00 Nitroglycerin 0.4 mg Q5MINP PRN SL 07/31/25 19:00 Morphine Sulfate 2 mg Q30M PRN IV 07/31/25 19:00 Atorvastatin Calcium 40 mg HS PO 08/01/25 22:00 UNV Metoprolol Tartrate 12.5 mg BID PO 08/01/25 10:00 UNV Sacubitril/ Valsartan 0.5 tab BID PO 08/01/25 10:00 UNV Empaglifozin 10 mg DAILY PO 08/01/25 10:00 UNV Examination General: Alert, oriented 3 Vitals: Stable HEENT: No JVD, no carotid bruits Cardiac: Regular rate and rhythm, no murmurs, rubs, or gallops Lungs: Clear to auscultation bilaterally, no rales or wheezing Abdomen: Soft, non-distended, mild epigastric tenderness, no rebound or guarding Extremities: No edema, pulses palpable bilaterally, arterial puncture, no bleeding Neuro: Grossly intact, no focal deficits Skin: Warm, dry, no diaphoresis noted laboratory and microbiology Laboratory Tests 08/01/25 06:29 Test 08/01/25 06:29 Range/Units Serum Glucose 97 74-106 mg/dL Problem List/Assessment/Plan Problem List/Assessment/Plan -Sp/ 2 stent left CX+ angioplasty -70% stenosis in LAD -Mild stenosis RCA -Chest pain secondary to ACS- NSTEMI type 1 resolved -New onset HF with 40% ejection fraction, non acute -Hypertension -Acute kidney injury resolved Plan/Recommendation Plan: ACS protocol given Continue aspirin 81 mg daily Brilinta 90 mg BID Start jardiance, entresto low dose and BB low dose as well, start spironolactone as outpatient Patient has an appointment with Dr Butler in his office tomorrow 08/02/2025 at 4 pm to schedule the LAD stent Patient can be DC with meds at bedside Case discussed with Dr Butler Time spent on critical care 71 min Plan discussed with: Patient My Orders My Orders Orders - DEANDRE HAWTHORNE RESIDENT Procedure Category Date Status Time Oxygen By Nasal RT 07/31/25 Transmitted Cannula 14:33 Chest Portable XY 07/31/25 Resulted 14:34 Tool Design Drafter ED NURSING 07/31/25 Transmitted 14:34 Blood Pressure ED NURSING 07/31/25 Transmitted 14:34 Pulse Oximetry ED NURSING 07/31/25 Transmitted 14:34 Sodium Chloride Lock PHA 07/31/25 In Process (Saline Lock Ns) 22:00 Oxygen Per Hour RT 07/31/25 Transmitted 14:34 Cardiac CRUZ 07/31/25 In Process Rehabilitation - Outpa Npo Except For CRUZ 08/01/25 In Process Medications 00:01 Obtain Consent For: ORDERS 07/31/25 Transmitted 14:34 D/C Tlc CRUZ 07/31/25 In Process 14:34 Shave Both Groins CRUZ 07/31/25 In Process 14:34 Provide Education CRUZ 07/31/25 In Process Materials 14:34 Cl Left Heart Cath CL 07/31/25 Taken 14:34 Comprehensive LAB 08/02/25 Verified Metabolic Panel 04:00 Obtain Consent For CRUZ 07/31/25 In Process Anesthesia 14:34 Vitamin B12 LAB 08/01/25 In Process 04:00 Vitamin D, 25-Hydroxy LAB 08/01/25 In Process 04:00 Atorvastatin (Lipitor) PHA 08/01/25 Logged 22:00 Sacubitril-Valsartan PHA 08/01/25 Logged (Entresto 24-26 Mg 10:00 Empagliflozin PHA 08/01/25 Logged (Jardiance) 10:00 Metoprolol Tartrate PHA 08/01/25 Logged Tablet (Lopressor Ta 10:00 Visit Coding Cardiology RES Date of Service: Aug 01, 2025 Billing Provider: GUILLAUME BRAXTON Sr., MD Cardiology Common Codes: 14634-[id number] CARE 30-74 MIN DEANDRE HAWTHORNE RESIDENT Aug 01, 2025 10:02
[2025-08-01] MEDS ORDERED: TICA90TA PO (10:04)
[2025-08-01] MEDS ORDERED: MET25T PO (10:04)
[2025-08-01] MEDS ORDERED: ASPI-325 PO (10:04)
[2025-08-01] MEDS ORDERED: ATOR20TA50 PO (10:04)
[2025-08-01] MEDS ORDERED: SACU1TAB PO (10:04)
[2025-08-01] MEDS ORDERED: EMPA1TAB PO (10:04)
--- NOTE | 2025-08-01 14:42 | DVHHP2 ---
Review of Systems Allergies: Coded Allergies: NO KNOWN ALLERGIES (Unverified , 11/24/18) Medications Current Medications Medications Dose Ordered Sig/Liz Route Start Time Stop Time Status Last Admin Dose Admin Sodium Chloride 10 ml Q8HR IV 07/31/25 22:00 08/01/25 14:13 10 ML Aspirin 81 mg DAILY PO 08/01/25 10:00 08/01/25 10:00 81 MG Ticagrelor 90 mg BID PO 08/01/25 10:00 08/01/25 10:00 90 MG Nitroglycerin 0.4 mg Q5MINP PRN SL 07/31/25 19:00 Morphine Sulfate 2 mg Q30M PRN IV 07/31/25 19:00 Atorvastatin Calcium 40 mg HS PO 08/01/25 22:00 UNV Metoprolol Tartrate 12.5 mg BID PO 08/01/25 10:00 UNV Sacubitril/ Valsartan 0.5 tab BID PO 08/01/25 10:00 UNV Empaglifozin 10 mg DAILY PO 08/01/25 10:00 UNV Exam Vital Signs Vital Signs Date Time Temp Pulse Resp B/P (MAP) Pulse Ox O2 Delivery O2 Flow Rate FiO2 08/01/25 13:26 97.8 69 18 124/84 (97) 99 97.8 08/01/25 08:00 Room Air* 0 21 Labs/Xrays Labs Test 08/01/25 06:29 07/31/25 20:53 07/31/25 13:53 07/31/25 13:08 Range/Units White Blood Count 10.6 4.4-10.8 10^3/uL Red Blood Count 4.60 4.5-5.90 10^6/uL Hemoglobin 13.9 # 13.5-17.5 g/dL Hematocrit 40.2 #L 41.0-53.0 % Mean Corpuscular Volume 87.3 80.0-100.0 fL Mean Corpuscular Hemoglobin 30.2 28.0-32.0 pg Mean Corpuscular Hemoglobin Concent 34.6 32.0-36.0 g/dL Red Cell Distribution Width 14.0 11.8-14.3 % Platelet Count 229 140-450 10^3/uL Mean Platelet Volume 7.9 6.9-10.8 fL Neutrophils (%) (Auto) 76.7 37.0-80.0 % Lymphocytes (%) (Auto) 12.1 10.0-50.0 % Monocytes (%) (Auto) 10.0 0.0-12.0 % Eosinophils (%) (Auto) 0.8 0.0-7.0 % Basophils (%) (Auto) 0.4 0.0-2.0 % Neutrophils # (Auto) 8.1 1.6-8.6 10 ^3/uL Lymphocytes # (Auto) 1.3 0.4-5.4 10 ^3/uL Monocytes # (Auto) 1.1 0-1.3 10 ^3/uL Eosinophils # (Auto) 0.1 0-0.8 10 ^3/uL Basophils # (Auto) 0 0-0.2 10 ^3/uL Nucleated Red Blood Cells 0.0 % Sodium Level 142 136-145 mmol/L Potassium Level 3.9 3.5-5.1 mmol/L Chloride Level 109 H 98-107 mmol/L Carbon Dioxide Level 23 20-31 mmol/L Anion Gap 10 5-15 Blood Urea Nitrogen 12 9-23 mg/dL Creatinine 0.94 0.700-1.30 mg/dL Glomerular Filtration Rate Calc 87 >90 mL/min BUN/Creatinine Ratio 12.8 10.0-20.0 Serum Glucose 97 74-106 mg/dL Calcium Level 8.5 L 8.7-10.4 mg/dL Magnesium Level 2.0 1.6-2.6 mg/dL Total Bilirubin 1.3 H 0.2-1.0 mg/dL Aspartate Amino Transferase (AST) 261 H 13-40 U/L Alanine Aminotransferase (ALT) 68 H 7-40 U/L Alkaline Phosphatase 72 46-116 U/L Total Protein 6.3 5.7-8.2 g/dL Albumin 3.8 3.2-4.8 g/dL Vitamin B12 Level 424 211-911 pg/mL Vitamin D 25-Hydroxy 39.8 30.0-100 ng/mL Prothrombin Time 12.3 H 9.3-11.8 sec Prothrombin Time INR 1.18 H 0.9-1.15 Activated Partial Thromboplast Time 46.4 H 24.5-34.5 SEC Troponin I High Sensitivity 681 *H </=54 ng/L Thyroid Stimulating Hormone (TSH) 1.13 0.55-4.78 uIU/mL Hemoglobin A1c 5.9 H <5.7 % A1C B-Type Natriuretic Peptide 47.21 0-100 pg/mL Triglycerides Level 64 < 150 mg/dL Cholesterol Level 155 < 200 mg/dL LDL Cholesterol 70 < 100 mg/dL HDL Cholesterol 70 H 40-59 mg/dL SEPSIS Sepsis Screen Date sepsis recognized/suspect: Jul 31, 2025 Time Sepsis recognized/suspect: 1305 Recent Procedure: No On Antibiotic Therapy: No Respiratory Rate >20: No Heart Rate >90: No Temp<36 C (96.8 F) or >38.3 C: No SBP <90 or MAP <65 mmHG: No New Acute Mental Status Change: No Is the patient on CPAP, BIPAP,: No Physician Orders Atorvastatin (Lipitor) (08/01/25 22:00) Sacubitril-Valsartan (Entresto 24-26 Mg (08/01/25 10:00) Empagliflozin (Jardiance) (08/01/25 10:00) Metoprolol Tartrate Tablet (Lopressor Ta (08/01/25 10:00) Schedule For Dc Clinic F/U (08/01/25 09:58) Vital Signs Date Time Temp Pulse Resp B/P (MAP) Pulse Ox O2 Delivery O2 Flow Rate FiO2 08/01/25 13:26 97.8 69 18 124/84 (97) 99 97.8 08/01/25 08:34 97.6 62 16 104/62 (76) 96 97.6 08/01/25 08:00 62 16 96 Room Air* 0 21 08/01/25 08:00 55 Laboratory Tests Test 08/01/25 06:29 White Blood Count 10.6 10^3/uL (4.4-10.8) Medications Medications Dose Ordered Sig/Liz Route Start Time Stop Time Status Last Admin Dose Admin Aspirin 81 mg DAILY PO 08/01/25 10:00 08/01/25 10:00 81 MG Ticagrelor 90 mg BID PO 08/01/25 10:00 08/01/25 10:00 90 MG Assessment/Plan Assessment/Plan see dictated note Plan discussed with: Patient Date of Service: Aug 01, 2025 Billing Provider: ENMA MOSS MD Common Visit Codes: [id number] INP/OBS CARE (HIGH) Secondary Visit Codes: [id number] CARE PLAN 30 MINUTES ENMA MOSS MD Aug 01, 2025 14:42
--- NOTE | 2025-08-01 15:05 | DVHHP ---
HISTORY OF PRESENT ILLNESS: The patient is a 70-year-old gentleman who was admitted after he developed chest pain while he was cutting wood accompanied by shortness of breath and numbness in both upper extremities. The patient denies any dizziness, syncope, no nausea or vomiting. REVIEW OF SYSTEMS: Review of rest of systems otherwise currently negative. PAST MEDICAL HISTORY: No significant illness in the past. MEDICATIONS: He takes no medications on a regular basis. ALLERGIES: No known drug allergies. SOCIAL HISTORY: He quit smoking 37 years ago, currently lives alone. FAMILY HISTORY: Negative. PHYSICAL EXAMINATION: GENERAL: On exam, the patient is awake, alert. VITAL SIGNS: Temperature of 97.6, pulse 69 per minute, blood pressure 124/84. SHEENT: Unremarkable. NECK: There is no JVD. No pedal edema. LUNGS: Lungs are equal bilaterally. No added sounds. CARDIOVASCULAR: S1 and S2 are regular. There are no murmurs. ABDOMEN: Soft. There is no organomegaly. NEUROLOGIC: Nonfocal. MUSCULOSKELETAL: Exam is normal. ASSESSMENT AND PLAN: * Acute myocardial infarction status post coronary angiography and stenting of the left circumflex. * Transaminitis. ADVANCED CARE PLANNING: The patient is a full code -Time spent was 17 minutes. MD RACHELE Rios/JOE TID: [id number] RECEIPT: [id number] MTDD
[2025-08-01 17:15] LABS: Urine Protein, UAD Negative (Negative)
[2025-08-01] MEDS: EMPAGLIFLOZIN 10 MG TAB PO SCH (18:24)
[2025-08-01] MEDS: SACUBITRIL-VALSARTAN 24mg/26mg TAB PO SCH (18:24)
--- NOTE | 2025-08-01 18:24 | DVHPN2 ---
Consult Progress Note Subjective Other Systems: Patient was seen and evaluated in follow up. Patient is s/p C which showed 99% stenosis in left circumflex, 2 stent placed, 70% LAD stenosis, mild stenosis RCA, EF 40%, inferior wall hypokinesis. Patient will need a stent in LAD in further procedure. Objective vital signs Vital Sign Date Time Temp Pulse Resp B/P (MAP) Pulse Ox O2 Delivery O2 Flow Rate FiO2 08/01/25 08:34 97.6 62 16 104/62 (76) 96 97.6 08/01/25 08:00 Room Air* 0 21 Total Intake and Output 07/31/25 07/31/25 08/01/25 15:00 23:00 07:00 Intake Total 0 ml Balance 0 ml medications Current Medications Medications Dose Ordered Sig/Liz Route Start Time Stop Time Status Last Admin Dose Admin Sodium Chloride 10 ml Q8HR IV 07/31/25 22:00 08/01/25 06:48 10 ML Aspirin 81 mg DAILY PO 08/01/25 10:00 08/01/25 10:00 81 MG Ticagrelor 90 mg BID PO 08/01/25 10:00 08/01/25 10:00 90 MG Nitroglycerin 0.4 mg Q5MINP PRN SL 07/31/25 19:00 Morphine Sulfate 2 mg Q30M PRN IV 07/31/25 19:00 Atorvastatin Calcium 40 mg HS PO 08/01/25 22:00 UNV Metoprolol Tartrate 12.5 mg BID PO 08/01/25 10:00 UNV Sacubitril/ Valsartan 0.5 tab BID PO 08/01/25 10:00 UNV Empaglifozin 10 mg DAILY PO 08/01/25 10:00 UNV Examination: GENERAL:Normal, LUNGS:Normal, CVS:Normal, ABDOMEN:Normal, MSK:Normal laboratory and microbiology Laboratory Tests 08/01/25 06:29 Test 08/01/25 06:29 Range/Units Serum Glucose 97 74-106 mg/dL Problem List/Assessment/Plan Problem List/Assessment/Plan Problem list Sp/ 2 stent left CX+ angioplasty. 70% stenosis in LAD. Mild stenosis RCA. Chest pain secondary to ACS- NSTEMI type 1 resolved. New onset HF with 40% ejection fraction, non acute. Hypertension. Acute kidney injury resolved. Plan/Recommendation Continued all current supportive medical care. Patient has been seen by Reena Mclaughlin Resident on my behalf, we have discussed the plan with the patient. ACS protocol given. Continue aspirin 81 mg daily. Brilinta 90 mg BID. Start jardiance, entresto low dose and BB low dose as well, start spironolactone as outpatient. Patient has an appointment with me in my office tomorrow 08/02/2025 at 4 pm to schedule the LAD stent. Patient can be DC with meds at bedside. Additional plan as per the hospital course. Plan discussed with: Patient Date of Service: Aug 01, 2025 Billing Provider: MAGI BROWN MD Cardiology Common Codes: 95027-[id number] CARE 30-74 MIN MAGI BROWN MD Aug 01, 2025 13:12
[2025-08-01] MEDS: METOPROLOL TARTRATE 25 MG TAB PO SCH (18:26)
[2025-08-01] MEDS: ATORVASTATIN 20 MG TAB PO SCH (21:21)
[2025-08-01] MEDS ORDERED: ATORVASTATIN 20 MG TAB PO SCH (22:00)
--- NOTE | 2025-08-01 23:02 | DVHSR ---
APPROVED REPORT EXAM: Two-dimensional and M-mode echocardiogram with Doppler and color Doppler. Blood Pressure: 116/77 mmHg INDICATION lv assessment RISK FACTORS Height: 5'6, Weight: 167 DIMENSIONS LVDd5.1 (3.8-5.7cm)LA (2D)3.4 (1.9-4.0cm)Aortic Root3.6 (2.0-3.7cm) LVDs3.4 (2.5-4.0cm)LA (MM) (1.9-4.0cm)Aortic Cusp Exc1.5 (1.5-2.0cm) EF (%) 55.0 (55-70%)Rt. Atrium4.4 (1.9-4.0cm)Asc. Aorta cm IVSd1.0 (0.7-1.1cm)RV (D) (1.8-2.4cm) PWd1.1 (0.7-1.1cm) Mitral Valve MitralMitral Stenosis E wave0.49m/sMV Mean GR.mmHg A wave0.59m/sMV Peak GR.38mmHg E/A ratio0.82D MVAcm2 DECEL [id number] 1/2 Timems Aortic Valve Aortic ValveAortic Stenosis V11.12m/Ethan Mean GR.3mmHg V21.26m/Ethan Peak GR.6mmHg LVOT Diameter2.3 (1.8-2.4cm)Doppler AVA3.69cm2 Pulmonic Valve V20.70m/s Conclusion SLIGHTLY DILATED LV DYSKINESIS OF IVS HYPOKINESIS OF INFERIOR LATERAL WALL LV EF IS ABOUT 40% NORMAL VALVES NO EFFUSION NORMAL RV FUNCTION
[2025-08-02 01:00] VITALS: BP 100/71; PULSE 66; RESP 18; TEMP 99.3; O2SAT 96
[2025-08-02 05:00] VITALS: BP 104/71; PULSE 58; RESP 18; TEMP 98; O2SAT 100
[2025-08-02 06:31] LABS: Hematocrit 46.8 % (41.0-53.0); Hemoglobin 15.6 g/dL (13.5-17.5); Mean Corpuscular Hemoglobin 29.3 pg (28.0-32.0); Mean Corpuscular Volume 87.8 fL (80.0-100.0); Nucleated Red Blood Cells % 0.0 %
[2025-08-02 07:03] LABS: Albumin 4.0 g/dL (3.2-4.8); Alkaline Phosphatase 82 U/L (46-116); Anion Gap 13 (5-15); BUN/Creatinine Ratio 14.2 (10.0-20.0); Bilirubin, Total 1.2 mg/dL (0.2-1.0); Blood Urea Nitrogen 15 mg/dL (9-23); Calcium 9.2 mg/dL (8.7-10.4); Carbon Dioxide 22 mmol/L (20-31); Chloride 106 mmol/L (98-107); Glucose 88 mg/dL (74-106); Magnesium 2.3 mg/dL (1.6-2.6); Potassium 4.2 mmol/L (3.5-5.1); Sodium 141 mmol/L (136-145); Total Protein 6.6 g/dL (5.7-8.2)
[2025-08-02 07:06] LABS: Alanine Aminotransferase 60 U/L (7-40)
[2025-08-02 08:00] VITALS: PULSE 63; RESP 17; O2SAT 98
[2025-08-02 09:00] VITALS: BP 112/83; PULSE 77; RESP 20; TEMP 97.9; O2SAT 97
[2025-08-02] MEDS ORDERED: CLOPIDOGREL BISULFATE 75 MG TAB PO SCH (10:00)
--- NOTE | 2025-08-02 10:34 | DVHDS2 ---
Discharge Summary Date of Admission Jul 31, 2025 at 18:54 Date of Discharge: Aug 02, 2025 Admitting Diagnosis NSTEMI Labs/Diagnostic Data: Laboratory Results Test 08/02/25 05:40 08/01/25 16:50 08/01/25 06:29 07/31/25 20:53 White Blood Count 11.9 10^3/uL (4.4-10.8) Red Blood Count 5.33 10^6/uL (4.5-5.90) Hemoglobin 15.6 g/dL (13.5-17.5) Hematocrit 46.8 % (41.0-53.0) Mean Corpuscular Volume 87.8 fL (80.0-100.0) Mean Corpuscular Hemoglobin 29.3 pg (28.0-32.0) Mean Corpuscular Hemoglobin Concent 33.4 g/dL (32.0-36.0) Red Cell Distribution Width 14.1 % (11.8-14.3) Platelet Count 258 10^3/uL (140-450) Mean Platelet Volume 7.9 fL (6.9-10.8) Neutrophils (%) (Auto) 74.6 % (37.0-80.0) Lymphocytes (%) (Auto) 14.0 % (10.0-50.0) Monocytes (%) (Auto) 10.5 % (0.0-12.0) Eosinophils (%) (Auto) 0.6 % (0.0-7.0) Basophils (%) (Auto) 0.3 % (0.0-2.0) Neutrophils # (Auto) 8.9 10 ^3/uL (1.6-8.6) Lymphocytes # (Auto) 1.7 10 ^3/uL (0.4-5.4) Monocytes # (Auto) 1.2 10 ^3/uL (0-1.3) Eosinophils # (Auto) 0.1 10 ^3/uL (0-0.8) Basophils # (Auto) 0 10 ^3/uL (0-0.2) Nucleated Red Blood Cells 0.0 % Sodium Level 141 mmol/L (136-145) Potassium Level 4.2 mmol/L (3.5-5.1) Chloride Level 106 mmol/L (98-107) Carbon Dioxide Level 22 mmol/L (20-31) Anion Gap 13 (5-15) Blood Urea Nitrogen 15 mg/dL (9-23) Creatinine 1.06 mg/dL (0.700-1.30) Glomerular Filtration Rate Calc 75 mL/min (>90) BUN/Creatinine Ratio 14.2 (10.0-20.0) Serum Glucose 88 mg/dL (74-106) Calcium Level 9.2 mg/dL (8.7-10.4) Magnesium Level 2.3 mg/dL (1.6-2.6) Total Bilirubin 1.2 mg/dL (0.2-1.0) Aspartate Amino Transferase (AST) 157 U/L (13-40) Alanine Aminotransferase (ALT) 60 U/L (7-40) Alkaline Phosphatase 82 U/L (46-116) Total Protein 6.6 g/dL (5.7-8.2) Albumin 4.0 g/dL (3.2-4.8) Urine Color Colorless (Yellow) Urine Clarity Clear (Clear) Urine pH 6.5 (5.0-9.0) Urine Specific [place] 1.006 (1.001-1.035) Urine Protein Negative (Negative) Urine Ketones Negative (Negative) Urine Blood Negative /uL (Negative) Urine Nitrite Negative (Negative) Urine Bilirubin Negative (Negative) Urine Urobilinogen Normal mg/dL (Negative) Urine Leukocyte Esterase Negative /uL (Negative) Urine RBC None seen /hpf (0 - 3) Urine Microscopic WBC < 1 /HPF (0-3) Urine Squamous Epithelial Cells None seen /hpf (<5) Urine Bacteria None seen /hpf (None Seen) Urine Glucose Normal mg/dL (Normal) Vitamin B12 Level 424 pg/mL (211-911) Vitamin D 25-Hydroxy 39.8 ng/mL (30.0-100) Prothrombin Time 12.3 sec (9.3-11.8) Prothrombin Time INR 1.18 (0.9-1.15) Activated Partial Thromboplast Time 46.4 SEC (24.5-34.5) Test 07/31/25 13:53 07/31/25 13:08 Troponin I High Sensitivity 681 ng/L (</=54) Thyroid Stimulating Hormone (TSH) 1.13 uIU/mL (0.55-4.78) Hemoglobin A1c 5.9 % A1C (<5.7) B-Type Natriuretic Peptide 47.21 pg/mL (0-100) Triglycerides Level 64 mg/dL (< 150) Cholesterol Level 155 mg/dL (< 200) LDL Cholesterol 70 mg/dL (< 100) HDL Cholesterol 70 mg/dL (40-59) Other Laboratory Tests 08/02/25 05:40 Brief Hx & Hospital Course: HISTORY OF PRESENT ILLNESS: The patient is a 70-year-old gentleman who was admitted after he developed chest pain while he was cutting wood accompanied by shortness of breath and numbness in both upper extremities. The patient denies any dizziness, syncope, no nausea or vomiting. Course of hospitalization: Patient was taken to the cardiac catheterization lab with findings of 90% stenosis of circumflex artery. Patient underwent PTCA and stent placement x2 two-vessel. Patient was also found to have LAD disease of approximately 70%. Patient was loaded with Plavix and aspirin, which was switched to Brilinta. Patient was also started on metoprolol tartrate, Entresto, Jardiance, atorvastatin, and aspirin. Patient is now chest pain free. He will be discharged home today and follow up with Dr. Darrell Butler this afternoon. Patient was instructed to follow up with the discharge Clinic in one week. All questions answered. Physical examination General: Alert and Oriented x3. No acute distress. Well-nourished. Eyes: EOMI. Anicteric. HENT: Moist mucous membranes. Lungs: Clear to auscultation bilaterally. No accessory muscle use. Cardiovascular: Regular rate and rhythm. No murmur. No JVD. Abdomen: Soft, non-tender and non-distended. No palpable masses. Extremities: No edema. Non-tender. Skin: No rashes or lesions. Warm. Neurologic: No focal neurological deficits. CN II-XII grossly intact, but not individually tested. Psychiatric: Cooperative. Appropriate mood and affect. Total time spent with patient discussing and formulating plan of care: 35 minutes. This medical document was created using an electronic medical record system with [employer] dictation system. Although this document has been carefully reviewed, there may still be some phonetic and typographical errors. These areas are purely typographical due to imperfections of the software programs, and do not reflect any compromise in the patient's medical care. Consults/Reason for consult Cardiology: NSTEMI Operations or Procedures 07/31/2024: PTCA and stent placement to circumflex artery Condition at Discharge: Fair Final Diagnosis/Problems List NSTEMI Acute systolic heart failure with ejection fraction 40% Dyslipidemia Discharge Disposition: Home Discharge Instruct/Medications Diet: Cardiac 2g Na,low cholest Activity: Light activity Activity comment: Do not lift anything greater than 5 lb with right wrist for one week Follow Up/Referral: Follow up with Dr. Darrell Butler this afternoon at established appointment Medications: Aspirin 81 mg p.o. daily Brilinta 90 mg p.o. b.i.d. Jardiance 10 mg p.o. daily Entresto one tablet p.o. b.i.d. Atorvastatin 40 mg p.o. q.h.s. Toprol-XL 25 mg p.o. daily Scheduled Aspirin (Aspirin Low Dose), 81 MG PO DAILY Atorvastatin Calcium (Atorvastatin Calcium), 40 MG PO HS Empagliflozin (Jardiance), 10 MG PO DAILY Metoprolol Tartrate (Lopressor), 12.5 MG PO BID Sacubitril-Valsartan (Entresto 24-26 mg), 0.5 TAB PO BID Ticagrelor Base (Brilinta), 90 MG PO BID 36 Discharge Statement: "Patient was advised to return to the ER or call 911 if any headaches, dizziness, shortness of breath, chest pain, abdominal pain, bleeding, fevers, or worsening of medical condition. Patient was counseled about treatment plan, medications, possible side effects, patientverbalized understanding. All questions were answered to the best of my ability. This discharge took greater then 30 minutes in planning, reviewing documentation, counseling the patient, and discussing with other team members." ASSESSMENT ASSESSMENT Assessment NSTEMI Date of Service: Aug 02, 2025 Billing Provider: RICHARD CASTILLO NP Common Visit Codes: 20826-LRV/OBS DISCH DAY >30min RICHARD CASTILLO NP Aug 02, 2025 10:34
[2025-08-02 10:48] VITALS: BP 104/75; PULSE 66; RESP 18; TEMP 97.6; O2SAT 100
--- NOTE | 2025-08-02 12:12 | DVHPNRES ---
Progress Note Date Seen: Aug 02, 2025 Resident Creating Document: DEANDRE HAWTHORNE RESIDENT Has the PT tested + for MRSA If YES, has PT been informed?: No Medical Necessity Reason Pt with a Central, PICC or Fol: No Subjective Review of Systems This is a 70-year-old male with no known past medical history who presents with acute onset of chest pain. Approximately two hours prior to arrival (ED arrival time 12:27 PM), the patient was cutting wood with a machine when he developed sudden epigastric pain that radiated to the neck and chest. The pain was described as severe, pressure-like, and associated with bilateral arm numbness. He denies shortness of breath, palpitations, diaphoresis, nausea, vomiting, cough, or dizziness. He reports being in his usual state of health prior to this episode. In the ED, initial EKG at 12:29 PM showed sinus rhythm (rate 55 bpm), left axis deviation, and borderline ST depression in diffuse leads without clear ST elevationinterpreted as borderline ischemic changes. The case was initially activated as a possible STEMI; however, after review by Dr. Braxton, findings were not consistent with STEMI. The patient initially refused cardiac catheterization but, around 2:30 PM, reported worsening chest pain. Telemetry revealed dynamic ischemic changes and the patient subsequently consented to proceed with left heart catheterization. Social History: Tobacco: Denies Alcohol: 1 shot of cognac every weekend Illicit drugs: Denies Lives independently Patient was placed on heparin drip, nitro drip, loading with aspirin and clopidogrel Labs (07/31/25): Troponin I high-sensitivity: 543 ng/L (elevated) consistent with acute myocardial injury. 07/31/25: LHC 99% stenosis in left circumflex, 2 stent placed, 70% LAD stenosis, mild stenosis RCA, EF 40%, inferior wall hypokinesis. Patient will need a stent in LAD in further procedure. 08/02/25: no chest pain, no acute complaints Objective vital signs Vital Sign Date Time Temp Pulse Resp B/P (MAP) Pulse Ox O2 Delivery O2 Flow Rate FiO2 08/02/25 10:48 97.6 66 18 100 08/02/25 10:02 104/75 08/02/25 08:00 Room Air* 0 21 Total Intake and Output 08/01/25 08/01/25 08/02/25 15:00 23:00 07:00 Intake Total 700 ml 230 ml Balance 700 ml 230 ml medications Current Medications Medications Dose Ordered Sig/Liz Route Start Time Stop Time Status Last Admin Dose Admin Sodium Chloride 10 ml Q8HR IV 07/31/25 22:00 08/02/25 06:31 10 ML Aspirin 81 mg DAILY PO 08/01/25 10:00 08/02/25 08:59 81 MG Ticagrelor 90 mg BID PO 08/01/25 10:00 08/02/25 09:02 90 MG Nitroglycerin 0.4 mg Q5MINP PRN SL 07/31/25 19:00 Morphine Sulfate 2 mg Q30M PRN IV 07/31/25 19:00 Atorvastatin Calcium 40 mg HS PO 08/01/25 22:00 UNV Metoprolol Tartrate 12.5 mg BID PO 08/01/25 10:00 08/02/25 09:02 12.5 MG Sacubitril/ Valsartan 0.5 tab BID PO 08/01/25 10:00 08/02/25 09:00 0.5 TAB Empaglifozin 10 mg DAILY PO 08/01/25 10:00 08/02/25 09:00 10 MG Atorvastatin Calcium 40 mg HS PO 08/01/25 22:00 08/01/25 21:21 40 MG Examination General: Alert, oriented 3 Vitals: Stable HEENT: No JVD, no carotid bruits Cardiac: Regular rate and rhythm, no murmurs, rubs, or gallops Lungs: Clear to auscultation bilaterally, no rales or wheezing Abdomen: Soft, non-distended, mild epigastric tenderness, no rebound or guarding Extremities: No edema, pulses palpable bilaterally, arterial puncture, no bleeding Neuro: Grossly intact, no focal deficits Skin: Warm, dry, no diaphoresis noted laboratory and microbiology Laboratory Tests 08/02/25 05:40 Test 08/02/25 05:40 Range/Units Serum Glucose 88 74-106 mg/dL Problem List/Assessment/Plan Problem List/Assessment/Plan -Sp/ 2 stent left CX+ angioplasty -70% stenosis in LAD -Mild stenosis RCA -Chest pain secondary to ACS- NSTEMI type 1 resolved -New onset HF with 40% ejection fraction, non acute -Hypertension -Acute kidney injury resolved Plan/Recommendation Plan: ACS protocol given Continue aspirin 81 mg daily Brilinta 90 mg BID Continue marylou tomlinsono low dose and BB low dose as well, start spironolactone as outpatient Patient has an appointment with Dr Butler in his office today 08/02/2025 at 4 pm to schedule the LAD stent Patient can be DC with meds at bedside Case discussed with Dr Butler Time spent on critical care 71 min Plan discussed with: Patient, Other (Enrique MELT HOUSE CENTRIFUGAL OPERATOR) Visit Coding Cardiology RES Date of Service: Aug 02, 2025 Billing Provider: MAGI BUTLER MD, MARIA RESIDENT Aug 02, 2025 12:12
[2025-08-02] MEDS ORDERED: CLOP75TA28 PO (12:23)
[2025-08-02 13:00] VITALS: BP 106/79; PULSE 70; RESP 20; TEMP 97.5; O2SAT 99
--- NOTE | 2025-08-02 22:17 | DVHPN2 ---
Consult Progress Note Subjective Other Systems: Patient was seen and evaluated in follow up. Patient has no new complaints at this time. Patient denies any cardiac symptoms. Patient is cardiac stable for discharge. Telemetry reviewed. Objective vital signs Vital Sign Date Time Temp Pulse Resp B/P (MAP) Pulse Ox O2 Delivery O2 Flow Rate FiO2 08/02/25 10:48 97.6 66 18 100 08/02/25 10:02 104/75 08/02/25 08:00 Room Air* 0 21 Total Intake and Output 08/01/25 08/01/25 08/02/25 15:00 23:00 07:00 Intake Total 700 ml 230 ml Balance 700 ml 230 ml medications Current Medications Medications Dose Ordered Sig/Liz Route Start Time Stop Time Status Last Admin Dose Admin Sodium Chloride 10 ml Q8HR IV 07/31/25 22:00 08/02/25 06:31 10 ML Aspirin 81 mg DAILY PO 08/01/25 10:00 08/02/25 08:59 81 MG Ticagrelor 90 mg BID PO 08/01/25 10:00 08/02/25 09:02 90 MG Nitroglycerin 0.4 mg Q5MINP PRN SL 07/31/25 19:00 Morphine Sulfate 2 mg Q30M PRN IV 07/31/25 19:00 Atorvastatin Calcium 40 mg HS PO 08/01/25 22:00 UNV Metoprolol Tartrate 12.5 mg BID PO 08/01/25 10:00 08/02/25 09:02 12.5 MG Sacubitril/ Valsartan 0.5 tab BID PO 08/01/25 10:00 08/02/25 09:00 0.5 TAB Empaglifozin 10 mg DAILY PO 08/01/25 10:00 08/02/25 09:00 10 MG Atorvastatin Calcium 40 mg HS PO 08/01/25 22:00 08/01/25 21:21 40 MG Examination: GENERAL:Normal, LUNGS:Normal, CVS:Normal, ABDOMEN:Normal, MSK:Normal laboratory and microbiology Laboratory Tests 08/02/25 05:40 Test 08/02/25 05:40 Range/Units Serum Glucose 88 74-106 mg/dL Problem List/Assessment/Plan Problem List/Assessment/Plan Problem list Sp/ 2 stent left CX+ angioplasty. 70% stenosis in LAD. Mild stenosis RCA. Chest pain secondary to ACS- NSTEMI type 1 resolved. New onset HF with 40% ejection fraction, non acute. Hypertension. Acute kidney injury resolved. Plan/Recommendation Continued all current supportive medical care. Patient has been seen by Reena Mclaughlin Resident on my behalf, we have discussed the plan with the patient. ACS protocol given. Continue aspirin 81 mg daily. Brilinta 90 mg BID. Continue jardiance, entresto low dose and BB low dose as well, start spironolactone as outpatient. Patient has an appointment with me in my office today 08/02/2025 at 4 pm to schedule the LAD stent. Patient can be DC with meds at bedside . Additional plan as per the hospital course. Plan discussed with: Patient Date of Service: Aug 02, 2025 Billing Provider: MAGI BROWN MD Cardiology Common Codes: [id number](High MAGI BROWN MD Aug 02, 2025 12:17
== END 2025-08-02 13:40 | disposition home or self-care (01) | DRG 359 ==
LOC: ER 12:27 → OVERFLOW 18:54 → TELE-WESTW 20:20
PROVIDERS: ADMIT Nurse Practitioner Acute Care; ATTEND Nurse Practitioner Acute Care
PROC: 027034Z Dilation of Coronary Artery, One Artery with Drug-eluting Intraluminal Device, Percutaneous Approach (ICD-10-PCS; principal; 2025-07-31)
PROC: 02C03ZZ Extirpation of Matter from Coronary Artery, One Artery, Percutaneous Approach (ICD-10-PCS; 2025-07-31)
PROC: 03HY32Z Insertion of Monitoring Device into Upper Artery, Percutaneous Approach (ICD-10-PCS; 2025-07-31)
PROC: 4A023N7 Measurement of Cardiac Sampling and Pressure, Left Heart, Percutaneous Approach (ICD-10-PCS; 2025-07-31)
PROC: B211YZZ Fluoroscopy of Multiple Coronary Arteries using Other Contrast (ICD-10-PCS; 2025-07-31)
PROC: B215YZZ Fluoroscopy of Left Heart using Other Contrast (ICD-10-PCS; 2025-07-31)
PROC: 3E073PZ Introduction of Platelet Inhibitor into Coronary Artery, Percutaneous Approach (ICD-10-PCS; 2025-07-31)
DX: I21.4 Non-ST elevation (NSTEMI) myocardial infarction (principal); I50.21 Acute systolic (congestive) heart failure; N17.9 Acute kidney failure, unspecified; R74.01 Elevation of levels of liver transaminase levels; I25.10 Atherosclerotic heart disease of native coronary artery without angina pectoris; I11.0 Hypertensive heart disease with heart failure; Z87.891 Personal history of nicotine dependence; Z79.899 Other long term (current) drug therapy
CPT/HCPCS: 36415; 71045; 80053; 80061; 81001; 82306; 82607; 83036; 83735; 83880; 84443; 84484; 85025; 85610; 85730; 92941; 92973; 93005; 93306; 93458; 96365; 96376; 99152; 99291; G0378; J2250; Q9967

== ENCOUNTER 2025-08-06 09:32 | Outpatient (CLI) | payer MEDICARE, MEDICAID ==
[~2025-08-06 09:32] MED LIST: ASPI-325 PO; ATOR20TA50 PO; CLOP75TA28 PO; EMPA1TAB PO; MET25T PO; SACU1TAB PO
[2025-08-06 10:52] LABS: Alanine Aminotransferase 38 U/L (7-40); Albumin 4.2 g/dL (3.2-4.8); Alkaline Phosphatase 80 U/L (46-116); Anion Gap 8 (5-15); BUN/Creatinine Ratio 14.0 (10.0-20.0); Blood Urea Nitrogen 15 mg/dL (9-23); Calcium 9.1 mg/dL (8.7-10.4); Carbon Dioxide 25 mmol/L (20-31); Glucose 99 mg/dL (74-106); Potassium 4.3 mmol/L (3.5-5.1); Sodium 142 mmol/L (136-145); Total Protein 7.2 g/dL (5.7-8.2)
[2025-08-06 10:53] LABS: Bilirubin, Total 0.5 mg/dL (0.2-1.0); Chloride 109 mmol/L (98-107)
== END 2025-08-06 17:00 | disposition home or self-care (01) ==
LOC: LAB 09:32
PROVIDERS: ATTEND Internal Medicine
DX: R94.5 Abnormal results of liver function studies (principal)
CPT/HCPCS: 36415; 80053

== ENCOUNTER 2025-08-07 10:35 | Emergency (ER) | payer MEDICARE, MEDICAID ==
[~2025-08-07] VITALS: Ht 172.7 cm; Wt 72.0 kg
[2025-08-07 10:39] VITALS: BP 121/91; PULSE 70; RESP 17; TEMP 97.9; O2SAT 98
--- NOTE | 2025-08-07 11:07 | ED.PDOC ---
GI ASSESSMENT HPI Comments 70-year-old male who presents to the ED with chief complaint of abdominal pain. Patient states he was recently discharged from [facility] three days ago after being diagnosed with NSTEMI and having stent placed in heart in left circumflex artery. Patient states today at follow up outpatient appointment, he states he was having abdominal pain and dizziness and referred to the ED for further evaluation. Patient states the pain is epigastric in location constant, nonradiating, with no associated exacerbating or relieving factors. Patient has associated nausea and headache and denies any other symptoms. Patient in the ED denies any current chest pain. Patient did have an EKG done.Patient in the ED otherwise has stable vitals. Chief Complaint: Abdominal Pain Time Seen by MD: 11:01 Primary Care Provider: ANN Reviewed Notes: Medications, Allergies Allergies: Coded Allergies: NO KNOWN ALLERGIES (Unverified , 11/24/18) Home Meds Active Scripts Clopidogrel Bisulfate (Plavix) 75 Mg Tab, 1 TAB PO DAILY, #90 TAB 1 Refill Prov:RICHARD CASTILLO NP 08/02/25 Sacubitril-Valsartan (Entresto 24-26 mg) 1 Tab Tab, 0.5 TAB PO BID for 30 Days, #30 TAB Prov:DEANDRE HAWTHORNE 08/01/25 Metoprolol Tartrate (Lopressor) 25 Mg Tb, 12.5 MG PO BID for 30 Days, #30 TAB Prov:DEANDRE HAWTHORNE 08/01/25 Empagliflozin (Jardiance) 10 Mg Tab, 10 MG PO DAILY for 30 Days, #30 TAB Prov:DEANDRE HAWTHORNE 08/01/25 Atorvastatin Calcium (ATORVASTATIN CALCIUM) 20 Mg Tab, 40 MG PO HS for 30 Days, #60 TAB Prov:DEANDRE HAWTHORNE 08/01/25 Aspirin (Aspirin Low Dose) 81 Mg Tab, 81 MG PO DAILY for 90 Days, #90 TAB Prov:DEANDRE HAWTHORNE 08/01/25 Information Source: Patient Mode of Arrival: Ambulatory Brought in by: Self Past Medical History PAST MEDICAL HISTORY: Denies Surgical History: Denies all surgeries Family History Family History: Reviewed,noncontributory to illness, Unknown Social History Smoker: Non-Smoker Alcohol: Denies ETOH Use Drugs: Denies Drug Use Lives In: Home Constitutional: denies: chills, diaphoresis, fatigue, fever, malaise, sweats, weakness, others EENTM: denies: blurred vision, double vision, ear bleeding, ear discharge, ear drainage, ear pain, ear ringing, eye pain, eye redness, hearing loss, mouth pain, mouth swelling, nasal discharge, nose bleeding, nose congestion, nose pain, photophobia, tearing, throat pain, throat swelling, voice changes, others Respiratory: denies: cough, hemoptysis, orthopnea, SOB at rest, shortness of breath, SOB with excertion, stridor, wheezing, others Cardiovascular: reports: dizzy spells; denies: chest pain, diaphoresis, Dyspnea on exertion, edema, irregular heart beat, left arm pain, lightheadedness, palpitations, PND, syncope, others Gastrointestinal: reports: abdominal pain, nausea; denies: abdomen distended, blood streaked bowels, constipated, diarrhea, dysphagia, difficulty swallowing, hematemesis, melena, poor appetite, poor fluid intake, rectal bleeding, rectal pain, vomiting, others Genitourinary: denies: burning, dysuria, flank pain, frequency, hematuria, inc ontinence, penile discharge, penile sore, pain, testicle pain, testicle swelling, urgency, others Neurological: denies: dizziness, fainting, headache, left sided numbness, left sided weakness, numbness, paresthesia, pre-existing deficit, right sided numbness, right sided weakness, seizure, speech problems, tingling, tremors, weakness, others Musculoskeletal: denies: back pain, gout, joint pain, joint swelling, muscle pain, muscle stiffness, neck pain, others Integumetry: denies: bruises, change in color, change in hair/nails, dryness, laceration, lesions, lumps, rash, wounds, others Allergic/Immunocompromised: denies: Difficulty Healing, Frequent Infections, Hives, Itching, others Hematologic/Lymphatic: denies: anemia, blood clots, easy bleeding, easy bruising, swollen glands, others Endocrine: denies: excessive hunger, excessive sweating, excessive thirst, excessive urination, flushing, intolerance to cold, intolerance to heat, unexplained weight gain, unexplained weight loss, others Psychiatric: denies: anxiety, bipolar disorder, depression, hopeless, panic disorder, schizophrenia, sleepless, suicidal, others All Other Systems: Reviewed and Negative Physical Exam General Appearance: Moderate Distress HEENT: Normal ENT Inspection, Pharynx Normal, TMs Normal Neck: Full Range of Motion, Non-Tender, Normal, Normal Inspection Respiratory: Chest Non-Tender, Lungs Clear, No Accessory Muscle Use, No Respiratory Distress, Normal Breath Sounds Cardiovascular: No Edema, No JVD, No Murmur, No Gallop, Normal Peripheral Pulses, Regular Rate/Rhythm Breast Exam: Deferred Gastrointestinal: No Organomegaly, Non Tender, No Pulsatile Mass, Normal Bowel Sounds, Soft Genitalia: Deferred Pelvic: Deferred Rectal: Deferred Extremities: No calf tenderness, Normal capillary refill, Normal inspection, Normal range of motion, Non-tender, No pedal edema Musculoskeletal : Apperance: Normal Neurologic: Alert, group cio II-XII nml as Tested, No Motor Deficits, Normal Affect, Normal Mood, No Sensory Deficits Cerebellar Function: Normal Reflexes: Normal Skin: Dry, Normal Color, Warm Peripheral Pulses: 3+ Radial (R), 3+ Radial (L) Lymphatic: No Adenopathy Was a procedure done? Was a procedure done?: No GI differential Dx Differential Diagnosis: Constipation, Diverticular disease, Esophagitis, Gastritis/PUD, Gastroenteritis, Dehydration, Electrolyte Imbalance, Stress Ulcer Other Differential Diagnosis Angina, atypical chest pain, heart failure X-Ray, Labs, Meds, VS Vital Signs Date Time Temp Pulse Resp B/P (MAP) Pulse Ox O2 Delivery O2 Flow Rate FiO2 08/07/25 10:39 97.9 70 17 121/91 98 97.9 08/07/25 10:37 64 Lab Test 08/07/25 11:22 08/07/25 10:26 Range/Units Troponin I High Sensitivity 685 *H 639 *H </=54 ng/L Patient alert. Came in because of chest pain. Was brought from discharge clinic. Vitals stable. Cardiac marker trending upwards. Dr. Butler his his napping machine operator who did the stent last time he was here. Reviewed his previous visit. EKG reviewed does not show any acute changes. Was given aspirin. Explained to the patient. Continue monitoring. Time of 1ST Reevaluation: 11:30 Reevaluation 1ST: Unchanged Patient Education/Counseling: Diagnosis, Treatment Family Education/Counseling: No Family Present SEPSIS Sepsis Screen Date sepsis recognized/suspect: Aug 07, 2025 Time Sepsis recognized/suspect: 1037 Recent Procedure: No On Antibiotic Therapy: No Respiratory Rate >20: No Heart Rate >90: No Temp<36 C (96.8 F) or >38.3 C: No SBP <90 or MAP <65 mmHG: No New Acute Mental Status Change: No Is the patient on CPAP, BIPAP,: No Physician Orders Electrocardigram (08/07/25 10:36) Electrocardigram (08/07/25 11:36) Electrocardigram (08/07/25 13:36) Troponin-I Hs (08/07/25 13:38) Vital Signs Date Time Temp Pulse Resp B/P (MAP) Pulse Ox O2 Delivery O2 Flow Rate FiO2 08/07/25 10:39 97.9 70 17 121/91 98 97.9 08/07/25 10:37 64 Departure 1 Departure Time of Disposition: 12:52 Impression: Primary Impression: Non-STEMI (non-ST elevated myocardial infarction) Disposition: ADMITTED INPATIENT Admit to: Med Surg Condition: Guarded Critical Care Note Critical Care Time?: Yes (90 min-critical care time only) Stability Stability form required: No Heart Score Heart Score: Heart Score Response (Comments) Value History Slightly Suspicious 0 EKG Normal 0 Age >65 2 Risk Factors 1 or 2 risk factors 1 Troponin >3 x's Normal limit 2 Total 5 I personally scribed for GERALD ZAIDI MD ([email or web address]) on 08/07/25 at 11:07. Electronically submitted by Quin Marques ([facility]). GERALD ZAIDI MD Aug 07, 2025 11:07
--- NOTE | 2025-08-07 13:51 | ECG ---
[facility] Test Date: 2025-08-07 Test Time: 10:26:20 Pat Name: KELLEN ROSA Department: [facility] ED Patient ID: [facility]-[id number] Room: Gender: M Exhibit Display Representative: ron : 1955 Requested By: GERALD ZAIDI Order Number: [id number] Reading MD: Abdi Braxton Measurements Intervals Muir Rate: 64 P: 47 ME: 231 QRS: 254 QRSD: 94 T: 106 QT: 395 QTc: 408 Interpretive Statements Sinus rhythm Prolonged ME interval LAD, consider left anterior fascicular block Posterior infarct, old Nonspecific T abnormalities, lateral leads Baseline wander in lead(s) V1 Electronically Signed On 08-13-2025 13:23:39 PST by Abdi Braxton Please click the below link to view image of tracing.
[2025-08-07 14:00] LABS: Potassium 4.8 mmol/L (3.5-5.1); Sodium 143 mmol/L (136-145)
[2025-08-07 14:01] LABS: Anion Gap 11 (5-15); Calcium 9.6 mg/dL (8.7-10.4); Carbon Dioxide 24 mmol/L (20-31)
[2025-08-07 14:06] LABS: BUN/Creatinine Ratio 16.5 (10.0-20.0); Blood Urea Nitrogen 18 mg/dL (9-23); Chloride 108 mmol/L (98-107); Glucose 89 mg/dL (74-106); Hematocrit 45.5 % (41.0-53.0); Hemoglobin 15.6 g/dL (13.5-17.5); Mean Corpuscular Hemoglobin 30.3 pg (28.0-32.0); Mean Corpuscular Volume 88.9 fL (80.0-100.0); Nucleated Red Blood Cells % 0.1 %
== END 2025-08-07 14:07 | disposition left against medical advice (07) ==
LOC: ER 10:35
DX: I21.4 Non-ST elevation (NSTEMI) myocardial infarction (principal); Z79.899 Other long term (current) drug therapy
CPT/HCPCS: 36415; 80048; 84484; 85025; 93005